=== PATIENT | male | born 1955 | race Caucasian/White ===

== ENCOUNTER 2017-05-28 11:44 | Inpatient (IN) ==
--- NOTE | 2017-05-27 17:02 | Discharge Summary ---
<Valerie Gruber E - Last Filed: 05/27/17 16:59> Date of Encounter: 05/27/17 - Discharge Diagnosis (1) Mechanical loosening of internal right knee prosthetic joint Priority: Primary Status: Chronic Qualifiers: Encounter type: subsequent encounter Qualified Code(s): T84.032D - Mechanical loosening of internal right knee prosthetic joint, subsequent encounter (2) COPD (chronic obstructive pulmonary disease) Priority: Secondary Status: Chronic Qualifiers: COPD type: unspecified COPD Qualified Code(s): J44.9 - Chronic obstructive pulmonary disease, unspecified (3) History of melanoma Priority: Secondary Status: Chronic (4) Chronic pain Priority: Secondary Status: Chronic Qualifiers: Chronic pain type: other chronic pain Qualified Code(s): G89.29 - Other chronic pain (5) Type 2 diabetes mellitus Priority: Secondary Status: Chronic Qualifiers: Diabetes mellitus complication status: with unspecified complications Diabetes mellitus penitentiary insulin use: with penitentiary use Qualified Code(s) : E11.8 - Type 2 diabetes mellitus with unspecified complications; Z79.4 - USP (current) use of insulin; Z79.4 - USP (current) use of insulin; Z79.4 - USP (current) use of insulin; Z79.4 - USP (current) use of insulin (6) Hypertension Priority: Secondary Status: Chronic Qualifiers: Hypertension type: unspecified Qualified Code(s): I10 - Essential (primary ) hypertension (7) 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) Priority: Secondary Status: Chronic - Discharge Medications Home Medications: Albuterol Sulfate [Albuterol Inhaler] 2 puff IH Q4HR #1 inhaler 03/04/15 [Rx] Budesonide/Formoterol 160/4.5 [Symbicort] 2 puff IH BIDR #1 inhaler 03/04/15 [Rx ] Lisinopril [Zestril] 20 mg PO DAILY #30 tablet 03/04/15 [Rx] Baclofen 20 mg PO Q8H 02/15/16 [History] Oxygen 2 l NS DAILY PRN 02/15/16 [History] Albuterol Neb [Proventil Neb] 2.5 mg IH QID PRN 05/30/16 [History] Aspirin 81 mg PO DAILY 08/08/16 [History] Loratadine [Allergy Relief] 10 mg PO DAILY #30 tablet 08/15/16 [Rx] Insulin DETEMIR [Levemir] 22 unit SQ HS 04/27/17 [History] Liraglutide [Victoza 2-Lenard] 1.2 mg SQ DAILY 04/27/17 [History] Hydrocortisone 2.5% CREAM [Cortaid] 1 appl TP BID #1 tube 05/17/17 [Rx] Aspirin Enteric Coated [Aspirin EC] 325 mg PO DAILY 21 Days #21 tablet. [Rx] Oxycodone HCl/Acetaminophen [Percocet 7.5-325 mg Tablet] 1 tab PO Q6H PRN [History] metFORMIN [Glucophage] 1,000 mg PO QPM 05/28/17 [History] metFORMIN [Glucophage] 500 mg PO QAM 05/28/17 [History] Allergies/Adverse Reactions: 3 Allergy/AdvReac Type Severity Reaction Status Date / Time No Known Allergies Allergy Verified 05/28/17 12:12 Primary care physician: Jhoan Tsang DO - Patient Status Disposition: Home Health Service Condition: Good - Discharge Instructions Follow Up With: Jhoan Tsang DO [Primary Care Provider] - - Hospital Course Hospital course: Mr. Tang is a 62 year old male - Time Spent with Patient Total time spent providing and/or coordinating discharge services: <Ilan Serrano - Last Filed: 05/29/17 07:10> Date of Encounter: 05/29/17 Time of Encounter: 07:09 - Discharge Diagnosis (1) Status post revision of total replacement of right knee Priority: Primary Status: Acute (2) Obesity (BMI 30.0-34.9) Priority: Secondary Status: Chronic (3) Mechanical loosening of internal right knee prosthetic joint Priority: Primary Status: Chronic Qualifiers: Encounter type: subsequent encounter Qualified Code(s): T84.032D - Mechanical loosening of internal right knee prosthetic joint, subsequent encounter (4) COPD (chronic obstructive pulmonary disease) Priority: Secondary Status: Chronic Qualifiers: COPD type: unspecified COPD Qualified Code(s): J44.9 - Chronic obstructive pulmonary disease, unspecified (5) History of melanoma Priority: Secondary Status: Chronic (6) Chronic pain Priority: Secondary Status: Chronic Qualifiers: Chronic pain type: other chronic pain Qualified Code(s): G89.29 - Other chronic pain (7) 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) Priority: Secondary Status: Chronic (8) Type 2 diabetes mellitus Priority: Secondary Status: Chronic Qualifiers: Diabetes mellitus complication status: with unspecified complications Diabetes mellitus terminologist insulin use: with terminologist use Qualified Code(s) : E11.8 - Type 2 diabetes mellitus with unspecified complications; Z79.4 - USP (current) use of insulin; Z79.4 - terminal gauger (current) use of insulin; Z79.4 - USP (current) use of insulin; Z79.4 - USP (current) use of insulin (9) Hypertension Priority: Secondary Status: Chronic Qualifiers: Hypertension type: unspecified Qualified Code(s): I10 - Essential (primary ) hypertension (10) 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 Tang is a 62 year old male Status post revision right total knee The patient had an uneventful postoperative course. They received antibiotics and physical therapy and were discharged in stable condition. There will follow -up in the office in 2 weeks. - Time Spent with Patient Total time spent providing and/or coordinating discharge services:
[2017-05-28] MEDS ORDERED: Lidocaine -MPF 1% 2 ML VIAL ID ONE (12:42)
[2017-05-28] MEDS ORDERED: Albuterol 2.5 MG/3 ML NEBULIZER IH ONE ×2 (12:42→17:32)
[2017-05-28] MEDS ORDERED: CeFAZolin Syr 2,000MG/20 ML 2,000 MG/20 ML SYRINGE IVPB ONE (12:42)
--- NOTE | 2017-05-28 12:43 | History & Physical Report ---
Date of Encounter: 05/28/17 Time of Encounter: 12:43 24 Hour HP Update - Instructions Instructions: If the History and Physical is less than 30 days old and was completed prior to A.M. admission and or procedure and has NOT been updated on calendar day of procedure please complete this update prior to performing procedure. - Update Patient reports changes in Medical Condition: No Changes in examination, assessment, or condition: No Changes in Medication: No Preop tests/diagnostics Reviewed: Yes Surgery Remains Indicated: Yes Consent for Planned Operative Procedure(s) Verified: Yes - Pre-Operative Checklist Preoperative Checklist Indicated: No Prophylactic Antibiotic Ordered: Yes Is VTE Prophylaxis Indicated?: Yes
[2017-05-28] MEDS ORDERED: Ringers Solution, Lactated 1,000 ML IVC SCH ×3 (12:45→21:48)
--- NOTE | 2017-05-28 13:23 | Anesthesia Evaluation PreOp ---
Date of Encounter: 05/28/17 Time of Encounter: 13:22 - Past History Planned Operation: Right Total Knee Arthroplasty Cardiac History: HTN Pulmonary History: Former smoker (quit 16 years ago, smoked for 33 years), COPD (home O2 2L prn), ALCIRA Dx (does not use CPAP) WAISTBAND SETTER History: Denies Any Significant HX Other Medical History: Diabetes Type II Anesthesia History: No Prior Anesthetic Complications, Past Anesthesia Alcohol Use: none Drug use: none Medications and Allergies Albuterol Sulfate [Albuterol Inhaler] 2 puff IH Q4HR #1 inhaler 03/04/15 [Rx] Budesonide/Formoterol 160/4.5 [Symbicort] 2 puff IH BIDR #1 inhaler 03/04/15 [Rx ] Lisinopril [Zestril] 20 mg PO DAILY #30 tablet 03/04/15 [Rx] Baclofen 20 mg PO Q8H 02/15/16 [History] Oxygen [Oxygen] 2 l NS DAILY PRN 02/15/16 [History] Albuterol Neb [Proventil Neb] 2.5 mg IH QID PRN 05/30/16 [History] Aspirin 81 mg PO DAILY 08/08/16 [History] Loratadine [Allergy Relief] 10 mg PO DAILY #30 tablet 08/15/16 [Rx] Insulin DETEMIR [Levemir] 22 unit SQ HS 04/27/17 [History] Liraglutide [Victoza 2-Lenard] 1.2 mg SQ DAILY 04/27/17 [History] Hydrocortisone 2.5% CREAM [Cortaid] 1 appl TP BID #1 tube 05/17/17 [Rx] Aspirin Enteric Coated [Aspirin EC] 325 mg PO DAILY 21 Days #21 tablet. [Rx] Oxycodone HCl/Acetaminophen [Percocet 7.5-325 mg Tablet] 1 tab PO Q6H PRN [History] metFORMIN [Glucophage] 1,000 mg PO QPM 05/28/17 [History] metFORMIN [Glucophage] 500 mg PO QAM 05/28/17 [History] 3 Allergy/AdvReac Type Severity Reaction Status Date / Time No Known Allergies Allergy Verified 05/28/17 12:12 - Meds/Allergy Pre-op Review Medications Reviewed: Yes Allergies Reviewed: Yes Beta Blockers on Current Med List: No Anesthesia Results - Labs Laboratory Tests 05/15/17 05/15/17 05/15/17 13:54 13:54 13:54 WBC 10.8 Hgb 16.2 Hct 49.5 Plt Count 243 PT 10.3 INR 1.0 APTT 21.4 L Sodium 137 Potassium 4.6 BUN 19 Creatinine 0.99 - Imaging EKG: report reviewed (04/09/2017 SINUS TACHYCARDIA RIGHT BUNDLE BRANCH BLOCK [ 120+ ms QRS DURATION, UPRIGHT V1, 40+ ms S IN I/aVL/V4/V5/V6] INTERPRETATION BASED ON A DEFAULT AGE OF 40 YEARS) Additional studies: 03/03/2015 Echo sinus tach in 110's throughout exam hyperdynamic LV systolic function, LVEF 75% normal RV structure and function no significant valvular dysfunction Anesthesia Exam O2 Sat Height 1.73 m Height 1.73 m Height 1.73 m Weight 103.419 kg Weight 103.419 kg Weight 103.419 kg O2 Sat by Pulse Oximetry 95 O2 Sat by Pulse Oximetry 95 O2 Sat by Pulse Oximetry 95 Vital Signs Temp Pulse Resp BP Pulse Ox 98.0 F 83 18 118/78 95 05/28/17 12:10 05/28/17 12:10 05/28/17 12:10 05/28/17 12:10 05/28/17 12:10 Blood Glucose* 130 Height: 5'8'' Weight: 228 lbs NPO (# of Hours): 8 - HEENT Pupil (Motor): EOMI Mallampati: II Teeth: Edentulous Denture Type: Upper: Complete, Lower: Complete Oral Opening: Greater than 3 - WAISTBAND SETTER LOC: Oriented WAISTBAND SETTER Motor: Normal RUE, Normal LUE, Normal RLE, Normal LLE, Normal Face WAISTBAND SETTER Sensory: Normal: RUE, LUE, Face, Deficit: RLE (neuropathy toes), LLE ( neuropathy toes) - Cardiac Rhythm: Regular Murmur: None - Pulmonary Breath Sounds: bilateral Clear Respiratory Effort: Symmetrical Anesthesia Assess/Plan ASA Score: 3 Modified Hanahan Scale for Level of Consciousness: Cooperative, oriented, and tranquil Anesthetic Plan: General, Regional Monitoring Plan: Standard Monitors Recovery Plan: PACU
[2017-05-28] MEDS ORDERED: Povidone-Iodine 22.5 ML, Sodium Chloride IRRigation 500 ML IR ONE (14:55)
[2017-05-28] MEDS ORDERED: *HR* Propofol 200 MG/20 ML VIAL IVP ONE (16:37)
[2017-05-28] MEDS ORDERED: *HR* FentaNYL (PF) 100 MCG/2 ML VIAL ONE ×2 (16:37→17:48)
[2017-05-28] MEDS ORDERED: *HR* Midazolam HCl 2 MG/2 ML VIAL ONE (16:37)
[2017-05-28] MEDS ORDERED: Lidocaine -MPF 2% 2 ML VIAL ONE (16:39)
[2017-05-28] MEDS ORDERED: *HR* Magnesium Sulfate 1 GM/2 ML VIAL ONE (16:40)
[2017-05-28] MEDS ORDERED: Bupivacaine/Clonidine Syringe 1 EACH SYRINGE ONE (16:53)
[2017-05-28] MEDS ORDERED: ROPIVACAINE HCL/PF 0.5% 30 ML VIAL ONE (16:53)
[2017-05-28] MEDS ORDERED: Dexamethasone 4 MG/ML VIAL ONE (16:55)
[2017-05-28] MEDS ORDERED: Ethanol\\Acetic Acid\\Na Ace\\Ben 1,000 ML IRRIG.SOLN IR ONE (17:04)
--- NOTE | 2017-05-28 17:15 | Anesthesia Procedures ---
Date of Encounter: 05/28/17 Time of Encounter: 17:13 Procedures: Anesthesia - Nerve Block Procedure Date: 05/28/17 Time: 17:13 Allergies/Adv Reactions: nka Surgical Procedure: right TKA rev Checklist: Correct Patient Identifier, Correct procedure, History checked Correct side: Right Blood Thinner: No Monitor Applied: EKG, BP, Pulse Oximetry Supplemental Oxygen via Nasal Cannula (L/min): 2 Sedation: Versed (mg): 2 Sedation: Fentanyl (mcg): 100 Indication: Post Op Analgesia Pre-op Neuro Deficits: No Block Type: Femoral, Other (ipack) Catheter placed: No Sterile Technique: Yes Ultrasound used: Yes Anatomy identified: Yes Visual spread of Local: Yes Neuro Stimulation: Yes (femoral only) Nerve Stimulator Range: 0.2 - 0.4 mA Blood on Needle Aspiration: No Smooth Injection of Local: Yes Pain with Injection of Local: No Prep: Chlorhexadine Needle: 22 x 50 mm Stimuplex Local: 0.25% Bupivicaine w/Clonidine 20 mcg/cc (20ml), Ropivacaine (0.5% 30ml + 8mg decadron) Volume (cc): 50 Number of Attempts: 1 Complications: None/effective block Vitals: Vital Signs/O2 Sat/Glucose, Most Recent Temp Pulse Resp BP Pulse Ox 98.0 F 89 16 117/78 97 05/28/17 12:45 05/28/17 17:03 05/28/17 17:03 05/28/17 17:03 05/28/17 17:03 Blood Glucose* 130
[2017-05-28] MEDS ORDERED: Naloxone 0.4 MG/ML INJ IVP PRN ×2 (17:32→21:48)
[2017-05-28] MEDS ORDERED: Ondansetron 4 MG/2 ML VIAL IVP ONE (17:32)
[2017-05-28] MEDS ORDERED: *HR* Enoxaparin 30 MG/0.3 ML SYRINGE SQ SCH (18:00)
--- NOTE | 2017-05-28 18:18 | Orthopedic Operative Note ---
Date of procedure: 05/28/17 Pre-op diagnosis: Aseptic loosening right total knee Post-op diagnosis: same Procedure: Procedure: Right revision total knee Estimated blood loss: 200 Hardware: Metal and polyethylene replacement. Biomet SSK femur: 70, 16 x 80 stem Tibia: 71, 16 x 80 stem Constrained Ade: 10 Exam Under anesthesia: Flexion contracture 15 degrees full flexion, well-healed incision, no swelling or erythema, no instability Procedural Notes: Loosening of femoral and tibial components. Operative procedure: The patient was brought to the operating room and placed on the operating room table. After general anesthesia was administered the operative knee was examined. Findings were noted in the exam under anesthesia. The operative extremity was prepped and draped in sterile surgical fashion. The patient received IV antibiotics prior to skin incision. A standard midline incision was made centered over the patella through the old incision. The incision was made through the skin and subcutaneous tissue. A medial parapatellar tendon approach was performed. Care was taken to preserve tissue along the medial aspect of the patella. And to protect the patella tendon. The deep MCL was released off the medial tibia. The infra patella fat pad was excised. Fluid was encountered this was normal joint fluid, Cultures were obtained and gram . The knee was brought into flexion the poly-was removed. The interface between the patient's femoral component and distal femur were disrupted with a osteotome and oscillating saw. Femoral component was loose and removed without significant bone loss. Attention was then turned to the tibial component. The same technique was used to remove the tibial component by disrupting the interface between the patient's tibial component and the patients proximal tibia. The tibial component was loose, was removed without significant bone loss. The tibia was sized to a 71 it was reamed up to a 16 x 80 Trial had good fit and fixation. The femur was sized to a 70, was reamed up to a 16 x 80 The finishing guide was seated and the box cut was made. The trial had good fit and fixation. Both trial components were seated and the 10 constrained Ade was seated and secured. The knee had full flexion and full extension with no instability. Patella had excellent patella tracking. The trial components were removed. The knee sat for 2 minutes with a Betadine saline solution. It was irrigated out with 2 L of pulse irrigation. The components were assembled on the back table, the tibia cemented first followed by the femur. The 10 constrained liner was seated and secure. The knee was brought to full extension while the cement hardened. The patella was cemented and held in place with patellar holding clamp. After the cement hardened the knee was irrigated out again. The knee was closed by the PA. The extensor mechanism was closed with a running #2 Fiberwire suture and a running #2 PDS suture. The deep tissue was irrigated and closed deep with #1 PDS suture superficially with 0 PDS suture. The skin was closed with skin abigail. The patient was placed in a sterile dressing and postoperative brace. They were extubated and transferred to recovery room in stable condition. Anesthesia: GETA Surgeon: Ilan Serrano Was there an title i instructional assistant present: No Estimated blood loss (cc): 200 Condition: stable Disposition: PACU
[2017-05-28] MEDS: *HR* HYDROmorphone (PF) 1 MG/ML SYRINGE IVP PRN ×4 (18:55→19:17)
--- NOTE | 2017-05-28 19:26 | Anesthesia Evaluation Post Op ---
Date of Encounter: 05/28/17 Time of Encounter: 19:25 - Vital Signs Vital Signs: Last Vital Signs Temp 98 F 05/28/17 19:24 Pulse 87 05/28/17 19:24 Resp 14 05/28/17 19:24 BP 128/82 05/28/17 19:24 Pulse Ox 94 05/28/17 19:24 - Lungs Lungs: Clear Ascult./Percussion - Airway Airway: Non-obstructed - Cardiovascular Regular Rate - Mental Status Mental Status: Alert & Oriented, Answers Appropriately - Pain Pain Scale: 4 - Nausea Vomiting Nausea Vomiting: Not Present - Hydration Hydration: Ice chips - Discharge PostOp Status: Transfer Patient to floor
[2017-05-28] MEDS ORDERED: *HR* OxyCODONE Immed Rel 5 MG TABLET PO PRN (21:48)
[2017-05-28] MEDS ORDERED: NON-FORMULARY MEDICATION 1 EACH EACH (Oxygen [Oxygen] 2 L) NS PRN (21:48)
[2017-05-28] MEDS ORDERED: Albuterol 2.5 MG/3 ML NEBULIZER IH PRN (21:48)
[2017-05-28] MEDS ORDERED: Sennosides 8.6 MG TABLET PO PRN (21:48)
[2017-05-28] MEDS ORDERED: MOM Conc 10 ML UD.LIQ PO PRN (21:48)
[2017-05-28] MEDS ORDERED: Temazepam 15 MG CAPSULE PO PRN (21:48)
[2017-05-28] MEDS ORDERED: D5% in Water 1,000 ML IVC PRN (21:48)
[2017-05-28] MEDS ORDERED: Ondansetron 4 MG/2 ML VIAL IVP PRN (21:48)
[2017-05-28] MEDS ORDERED: *HR* Dextrose 50 % in Water (Syg) 50 ML SYRINGE IVP PRN (21:48)
[2017-05-28] MEDS ORDERED: Dextrose Gel 15 GM/37.5 ML TUBE PO PRN ×2 (21:48)
[2017-05-28] MEDS: Budesonide/Formoterol 160/4.5 MDI IH SCH (23:33)
[2017-05-29] MEDS: CeFAZolin Premix DUPLEX 2,000 MG/50 ML BAG IVPB SCH ×2 (00:01→08:19)
[2017-05-29] MEDS: Insulin LISPRO 300 UNITS/3 ML VIAL SQ SCH ×5 (00:01→21:41)
[2017-05-29] MEDS: *HR* OxyCODONE Immed Rel 15 MG TABLET PO PRN ×3 (00:03→14:11)
[2017-05-29] MEDS: *HR* Metformin 500 MG TABLET PO SCH ×3 (00:04→16:53)
[2017-05-29] MEDS: Baclofen 10 MG TABLET PO SCH ×4 (00:51→22:19)
[2017-05-29] MEDS: Insulin DETEMIR 100 UNIT/ML X5UNITS SQ SCH ×2 (00:52→21:40)
[2017-05-29 01:12] LABS: Hematocrit 44.7 % (37.5-50.1); Hemoglobin 14.6 g/dL (12.9-16.9)
[2017-05-29] MEDS: *HR* Enoxaparin 30 MG/0.3 ML SYRINGE SQ SCH ×2 (05:21→16:53)
[2017-05-29 06:30] LABS: Hematocrit 43.3 % (37.5-50.1); Hemoglobin 14.1 g/dL (12.9-16.9)
[2017-05-29 06:32] LABS: BUN/Creatinine Ratio 21 (6-26); Blood Urea Nitrogen 21 mg/dL (8-23); Calcium 8.6 mg/dL (8.6-10.3); Carbon Dioxide 19 mEq/L (23-29); Chloride 103 mEq/L (98-107); Glucose 289 mg/dL (70-105); Osmolality,Calculated 288 (280-300); Potassium 4.7 mEq/L (3.5-5.1); Sodium 132 mEq/L (136-145); eGFR For African Americans > 60 (> 60); eGFR For Non-African Americans > 60 (> 60)
--- NOTE | 2017-05-29 07:10 | Orthopedics Progress Note ---
Date of Encounter: 05/29/17 Time of Encounter: 07:10 - Assessment and Plan (1) Status post revision of total replacement of right knee Current Visit: Yes Status: Acute (2) Obesity (BMI 30.0-34.9) Current Visit: Yes Status: Chronic (3) Mechanical loosening of internal right knee prosthetic joint Current Visit: No Status: Chronic Qualifiers: Encounter type: subsequent encounter Qualified Code(s): T84.032D - Mechanical loosening of internal right knee prosthetic joint, subsequent encounter (4) COPD (chronic obstructive pulmonary disease) Current Visit: No Status: Chronic Qualifiers: COPD type: unspecified COPD Qualified Code(s): J44.9 - Chronic obstructive pulmonary disease, unspecified (5) History of melanoma Current Visit: No Status: Chronic (6) Chronic pain Current Visit: No Status: Chronic Qualifiers: Chronic pain type: other chronic pain Qualified Code(s): G89.29 - Other chronic pain (7) 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) Current Visit: No Status: Chronic (8) Type 2 diabetes mellitus Current Visit: No Status: Chronic Qualifiers: Diabetes mellitus complication status: with unspecified complications Diabetes mellitus nursing home insulin use: with multifocal lens assembler use Qualified Code(s) : E11.8 - Type 2 diabetes mellitus with unspecified complications; Z79.4 - quality manager (current) use of insulin; Z79.4 - quality manager (current) use of insulin; Z79.4 - assisted (current) use of insulin; Z79.4 - quality manager (current) use of insulin (9) Hypertension Current Visit: No Status: Chronic Qualifiers: Hypertension type: unspecified Qualified Code(s): I10 - Essential (primary ) hypertension (10) 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 Afebrile vital signs stable. Operative extremity: Neurovascularly intact Dressing clean dry and intact Calves nontender Assessment and plan: Continue with postoperative care Hematocrit 44 discharged today Objective Vital signs: Vital Signs Temp Pulse Resp BP Pulse Ox 05/29/17 07:03 98.8 F 110 18 113/70 94 05/29/17 03:56 18 97 05/29/17 03:51 98.4 F 103 17 108/78 97 05/28/17 23:56 98.2 F 100 17 130/71 96 05/28/17 23:33 16 96 05/28/17 21:48 97.8 F 107 16 132/71 96 05/28/17 20:05 97.7 F 97 16 125/74 97 05/28/17 19:51 98.3 F 91 17 125/74 96 05/28/17 19:35 98.4 F 101 17 123/74 97 05/28/17 19:34 98.2 F 86 14 130/78 94 05/28/17 19:24 98 F 87 14 128/82 94 05/28/17 19:14 89 14 115/65 95 05/28/17 19:04 91 14 125/66 95 05/28/17 18:54 97.7 F 92 16 129/78 94 05/28/17 17:15 95 14 125/79 94 05/28/17 17:03 89 16 117/78 97 05/28/17 12:45 98.0 F 83 18 118/78 95 05/28/17 12:10 98.0 F 83 18 118/78 95 Intake and Output 05/28/17 05/28/17 05/29/17 15:59 23:59 07:59 Intake Total 350 / 350 Output Total 200 / 200 250 / 250 Balance 150 / 150 -250 / -250 Intake: Oral 350 / 350 Output: Urine 250 / 250 Estimated Blood Loss 200 / 200 Other: Meal tv dinner Percent of Meal Consumed 100% Weight 103.419 kg Blood Glucose* 130 239 - Labs CBC & BMP: 05/29/17 05:35 05/29/17 05:35 Labs: Abnormal lab results Sodium 132 mEq/L (136-145) L 05/29/17 05:35 Carbon Dioxide 19 mEq/L (23-29) L 05/29/17 05:35 Glucose 289 mg/dL (70-105) H 05/29/17 05:35 POC Glucose 239 (58-89) H 05/28/17 23:52 - VTE Documentation of Mechanical Device: Venous foot pump, device Consult Discharge Plan - Plan Referrals: Jhoan Tsang DO [Primary Care Provider] -
[2017-05-29] MEDS: Budesonide/Formoterol 160/4.5 MDI IH SCH ×2 (08:07→20:13)
[2017-05-29] MEDS: Loratadine 10 MG TABLET PO SCH (08:18)
[2017-05-29] MEDS: Lisinopril 20 MG TABLET PO SCH (08:18)
[2017-05-29] MEDS: Aspirin 81 MG TAB.CHEW PO SCH (08:18)
[2017-05-29] MEDS: (Liraglutide [Victoza 2-Pak] 1.2 MG) SQ SCH (08:19)
--- NOTE | 2017-05-29 17:10 | Event Note ---
Date of Encounter: 05/29/17 Time of Encounter: 12:00 PCR- POD#1 R TKR revision Serrano 05/28/17 PCR - Patient seen at bedside. Pain control: Adequate Participating in PT. All questions and concerns addressed. Educated on use of incentive spirometer, ambulation, and hydration. Patient educated on post-operative restrictions and care. Addressed: Patient now needing ECF care per PT recommendations. D/C plan: D/C ECF when approved/auth obtained - discussed with Neli - states that he requires 3 night stay - discussed [facility] as patient's placement of choice. Continuity placed.
--- NOTE | 2017-05-29 17:11 | Physician Discharge Referral ---
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) Priority: Secondary Status: Chronic (8) Status post revision of total replacement of right knee Priority: Primary Status: Acute Expected Duration of Placement: less than 30 days Prognosis: Good Aware of Diagnosis: Patient Aware of Prognosis: Patient - Transfer Medications Home Medications: Albuterol Sulfate [Albuterol Inhaler] 2 puff IH Q4HR #1 inhaler 03/04/15 [Rx] Budesonide/Formoterol 160/4.5 [Symbicort] 2 puff IH BIDR #1 inhaler 03/04/15 [Rx ] Lisinopril [Zestril] 20 mg PO DAILY #30 tablet 03/04/15 [Rx] Baclofen 20 mg PO Q8H 02/15/16 [History] Oxygen 2 l NS DAILY PRN 02/15/16 [History] Albuterol Neb [Proventil Neb] 2.5 mg IH QID PRN 05/30/16 [History] Aspirin 81 mg PO DAILY 08/08/16 [History] Loratadine [Allergy Relief] 10 mg PO DAILY #30 tablet 08/15/16 [Rx] Insulin DETEMIR [Levemir] 22 unit SQ HS 04/27/17 [History] Liraglutide [Victoza 2-Lenard] 1.2 mg SQ DAILY 04/27/17 [History] Hydrocortisone 2.5% CREAM [Cortaid] 1 appl TP BID #1 tube 05/17/17 [Rx] Aspirin Enteric Coated [Aspirin EC] 325 mg PO DAILY 21 Days #21 tablet. [Rx] Oxycodone HCl/Acetaminophen [Percocet 7.5-325 mg Tablet] 1 tab PO Q6H PRN [History] metFORMIN [Glucophage] 1,000 mg PO QPM 05/28/17 [History] metFORMIN [Glucophage] 500 mg PO QAM 05/28/17 [History] Allergies/Adverse Reactions: 3 Allergy/AdvReac Type Severity Reaction Status Date / Time No Known Allergies Allergy Verified 05/28/17 12:12 - Respiratory Orders Smoking Cessation: Smoking cessation has been advised. For more information, call the [place] Tobacco Quit Line at 6-219-BUYI-NOW. - Ancillary Orders May use pressure relief devices daily prn, May go on ELLA w/family/respon democrat w /meds at nurse discretion PRN, May consult with Dentist, Otc Clerk, Gift Consultant PRN - Mobility Orders Chair, Ambulate - Rehabiliation Orders Rehab Potential: Good Rehab Orders: Evaluation for Physical Therapy Other: Total Knee replacement Precautions x 6 weeks Apply cold therapy wrap 3-6x/day for 20 minutes at a time. Encourage ambulation throughout the day and incentive spirometer 10x/hour. Elevate affected extremity above heart as tolerated. Brace: Wear knee immobilizer at night x 2 weeks. - Treatments Skin tear care topically daily PRN per policy List/Other: Opsite placed. Keep dressing intact until first follow up appointment. If > 50% saturated, notify office, remove dressing and place appropriate dressing back in place. Leave Geovanni and Zipline intact. Opsite dressing is water resistant, not water-proof. OK to shower, but do not get dressing wet. - Diet Orders Regular CERTIFICATION: I certify that the transfer of the above named patient to an Extended Care Facility is necessary for the continuing treatment of the diagnosis listed. The above information is true and accurate reflection of patient's current condition. Confidential - Redisclosure prohibited without a patient's written consent.
[2017-05-30] MEDS: *HR* OxyCODONE Immed Rel 15 MG TABLET PO PRN ×2 (05:38→09:53)
[2017-05-30] MEDS: Baclofen 10 MG TABLET PO SCH ×3 (05:38→20:56)
[2017-05-30] MEDS: *HR* Enoxaparin 30 MG/0.3 ML SYRINGE SQ SCH ×2 (05:39→16:54)
[2017-05-30 06:49] LABS: Hematocrit 38.6 % (37.5-50.1)
[2017-05-30 06:50] LABS: Hemoglobin 12.4 g/dL (12.9-16.9)
[2017-05-30 07:08] LABS: BUN/Creatinine Ratio 30 (6-26); Blood Urea Nitrogen 25 mg/dL (8-23); Calcium 8.4 mg/dL (8.6-10.3); Carbon Dioxide 26 mEq/L (23-29); Chloride 106 mEq/L (98-107); Glucose 183 mg/dL (70-105); Osmolality,Calculated 289 (280-300); Potassium 4.5 mEq/L (3.5-5.1); Sodium 135 mEq/L (136-145); eGFR For African Americans > 60 (> 60); eGFR For Non-African Americans > 60 (> 60)
[2017-05-30] MEDS: Budesonide/Formoterol 160/4.5 MDI IH SCH ×2 (08:19→19:45)
--- NOTE | 2017-05-30 08:49 | Orthopedics Progress Note ---
Date of Encounter: 05/30/17 Time of Encounter: 08:48 - Assessment and Plan (1) Status post revision of total replacement of right knee Current Visit: Yes Status: Acute (2) Obesity (BMI 30.0-34.9) Current Visit: Yes Status: Chronic (3) Mechanical loosening of internal right knee prosthetic joint Current Visit: No Status: Chronic Qualifiers: Encounter type: subsequent encounter Qualified Code(s): T84.032D - Mechanical loosening of internal right knee prosthetic joint, subsequent encounter (4) COPD (chronic obstructive pulmonary disease) Current Visit: No Status: Chronic Qualifiers: COPD type: unspecified COPD Qualified Code(s): J44.9 - Chronic obstructive pulmonary disease, unspecified (5) History of melanoma Current Visit: No Status: Chronic (6) Chronic pain Current Visit: No Status: Chronic Qualifiers: Chronic pain type: other chronic pain Qualified Code(s): G89.29 - Other chronic pain (7) 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) Current Visit: No Status: Chronic (8) Type 2 diabetes mellitus Current Visit: No Status: Chronic Qualifiers: Diabetes mellitus complication status: with unspecified complications Diabetes mellitus prison insulin use: with nail specialist use Qualified Code(s) : E11.8 - Type 2 diabetes mellitus with unspecified complications; Z79.4 - home health aid (current) use of insulin; Z79.4 - home health aid (current) use of insulin; Z79.4 - half-way (current) use of insulin; Z79.4 - home health aid (current) use of insulin (9) Hypertension Current Visit: No Status: Chronic Qualifiers: Hypertension type: unspecified Qualified Code(s): I10 - Essential (primary ) hypertension (10) 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 Afebrile vital signs stable. Operative extremity: Neurovascularly intact Dressing clean dry and intact Calves nontender Assessment and plan: Continue with postoperative care discharge tomorrow Objective Vital signs: Vital Signs Temp Pulse Resp BP Pulse Ox 05/30/17 08:20 16 97 05/30/17 06:57 98.6 F 86 18 123/72 95 05/30/17 04:11 16 98 05/30/17 00:56 98.0 F 84 14 92/85 96 05/29/17 23:38 18 97 05/29/17 20:13 19 98 05/29/17 19:19 98.2 F 109 18 99/60 96 05/29/17 18:36 107 95/57 05/29/17 16:33 18 95 05/29/17 14:57 98.2 F 106 18 95/55 95 05/29/17 11:49 97.8 F 120 18 110/68 97 Intake and Output 05/29/17 05/30/17 05/30/17 23:59 07:59 15:59 Intake Total 150 / 150 500 / 500 360 / 360 Output Total 400 / 400 Balance 150 / 150 100 / 100 360 / 360 Intake: Oral 150 / 150 500 / 500 360 / 360 Output: Urine 400 / 400 Other: Meal Breakfast Percent of Meal Consumed 100% Blood Glucose* 201 151 - Labs CBC & BMP: 05/30/17 06:40 05/30/17 06:40 Labs: Abnormal lab results Hgb 12.4 g/dL (12.9-16.9) L D 05/30/17 06:40 Sodium 135 mEq/L (136-145) L 05/30/17 06:40 BUN 25 mg/dL (8-23) H 05/30/17 06:40 BUN/Creatinine Ratio 30 (6-26) H 05/30/17 06:40 Glucose 183 mg/dL (70-105) H 05/30/17 06:40 POC Glucose 201 (58-89) H 05/29/17 21:09 Calcium 8.4 mg/dL (8.6-10.3) L 05/30/17 06:40 - VTE Documentation of Mechanical Device: Venous foot pump, device Consult Discharge Plan - Plan Referrals: Jhoan Tsang DO [Primary Care Provider] -
[2017-05-30] MEDS: Insulin LISPRO 300 UNITS/3 ML VIAL SQ SCH ×4 (08:53→20:57)
[2017-05-30] MEDS: Aspirin 81 MG TAB.CHEW PO SCH (08:54)
[2017-05-30] MEDS: Lisinopril 20 MG TABLET PO SCH (08:54)
[2017-05-30] MEDS: *HR* Metformin 500 MG TABLET PO SCH ×2 (08:55→16:55)
[2017-05-30] MEDS: (Liraglutide [Victoza 2-Pak] 1.2 MG) SQ SCH (08:55)
[2017-05-30] MEDS: Loratadine 10 MG TABLET PO SCH (08:55)
[2017-05-30] MEDS: *HR* OxyCODONE Immed Rel 5 MG TABLET PO PRN ×3 (13:57→22:46)
--- NOTE | 2017-05-30 16:35 | Event Note ---
Date of Encounter: 05/30/17 Time of Encounter: 12:40 PCR- POD#2 R TKR revision Serrano 05/28/17 PCR - Patient seen at bedside. Pain control: Adequate Participating in PT. All questions and concerns addressed. Educated on use of incentive spirometer, ambulation, and hydration. Patient educated on post-operative restrictions and care. Addressed: Patient now needing ECF care per PT recommendations. D/C plan: D/C ECF [facility] tomorrow
[2017-05-30] MEDS: Insulin DETEMIR 100 UNIT/ML X5UNITS SQ SCH (20:57)
[2017-05-31] MEDS: *HR* OxyCODONE Immed Rel 5 MG TABLET PO PRN (05:13)
[2017-05-31] MEDS: *HR* Enoxaparin 30 MG/0.3 ML SYRINGE SQ SCH (05:13)
[2017-05-31] MEDS: Baclofen 10 MG TABLET PO SCH (05:14)
[2017-05-31] MEDS: Budesonide/Formoterol 160/4.5 MDI IH SCH (08:17)
[2017-05-31] MEDS: Aspirin 81 MG TAB.CHEW PO SCH (08:29)
[2017-05-31] MEDS: Loratadine 10 MG TABLET PO SCH (08:29)
[2017-05-31] MEDS: Insulin LISPRO 300 UNITS/3 ML VIAL SQ SCH ×2 (08:29→12:03)
[2017-05-31] MEDS: *HR* Metformin 500 MG TABLET PO SCH (08:29)
[2017-05-31] MEDS: Lisinopril 20 MG TABLET PO SCH (08:29)
[2017-05-31] MEDS: (Liraglutide [Victoza 2-Pak] 1.2 MG) SQ SCH (08:30)
--- NOTE | 2017-05-31 10:01 | Orthopedics Progress Note ---
Date of Encounter: 05/31/17 Time of Encounter: 08:00 - Assessment and Plan (1) Mechanical loosening of internal right knee prosthetic joint Current Visit: Yes Status: Chronic Qualifiers: Encounter type: subsequent encounter Qualified Code(s): T84.032D - Mechanical loosening of internal right knee prosthetic joint, subsequent encounter (2) COPD (chronic obstructive pulmonary disease) Current Visit: No Status: Chronic Qualifiers: COPD type: unspecified COPD Qualified Code(s): J44.9 - Chronic obstructive pulmonary disease, unspecified (3) History of melanoma Current Visit: No Status: Chronic (4) Chronic pain Current Visit: No Status: Chronic Qualifiers: Chronic pain type: other chronic pain Qualified Code(s): G89.29 - Other chronic pain (5) Type 2 diabetes mellitus Current Visit: No Status: Chronic Qualifiers: Diabetes mellitus complication status: with unspecified complications Diabetes mellitus belt picker insulin use: with snf use Qualified Code(s) : E11.8 - Type 2 diabetes mellitus with unspecified complications; Z79.4 - skilled nursing (current) use of insulin; Z79.4 - [place] (current) use of insulin; Z79.4 - skilled nursing (current) use of insulin; Z79.4 - [place] (current) use of insulin (6) Hypertension Current Visit: No Status: Chronic Qualifiers: Hypertension type: unspecified Qualified Code(s): I10 - Essential (primary ) hypertension (7) 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 Objective: Afebrile vital signs stable. Operative extremity: Neurovascularly intact Dressing clean dry and intact Calves nontender Assessment: POD#3 s/p R TKR revision Serrano 05/28/17 Plan: Continue with postoperative care Discharge today - patient has auth to go to [facility], [facility] and also has treatment at cancer center today. Patient to keep outpatient follow up as scheduled. Objective Vital signs: Vital Signs Temp Pulse Resp BP Pulse Ox 05/31/17 08:40 93 05/31/17 08:18 18 93 05/31/17 07:05 98.6 F 106 18 116/76 93 05/31/17 04:38 18 92 01/18/18 03:32 98.7 F 98 18 118/75 93 05/31/17 00:48 98.8 F 109 18 125/66 93 05/30/17 19:45 18 99 05/30/17 19:09 98.9 F 93 16 126/68 95 05/30/17 16:12 16 95 05/30/17 15:46 98.7 F 102 18 115/63 95 05/30/17 12:07 20 95 05/30/17 10:45 98.2 F 100 18 123/68 96 Intake and Output 05/30/17 05/31/17 05/31/17 23:59 07:59 15:59 Intake Total 640 / 640 600 / 600 240 / 240 Output Total 960 / 960 650 / 650 Balance -320 / -320 -50 / -50 240 / 240 Intake: Oral 640 / 640 600 / 600 240 / 240 Output: Urine 960 / 960 650 / 650 Other: Meal Dinner Breakfast Percent of Meal Consumed 100% 75% Blood Glucose* 130 214 - Labs CBC & BMP: 05/30/17 06:40 05/30/17 06:40 Labs: Abnormal lab results Hgb 12.4 g/dL (12.9-16.9) L D 05/30/17 06:40 Sodium 135 mEq/L (136-145) L 05/30/17 06:40 BUN 25 mg/dL (8-23) H 05/30/17 06:40 BUN/Creatinine Ratio 30 (6-26) H 05/30/17 06:40 Glucose 183 mg/dL (70-105) H 05/30/17 06:40 POC Glucose 214 (58-89) H 05/31/17 07:09 Calcium 8.4 mg/dL (8.6-10.3) L 05/30/17 06:40 - VTE Documentation of Mechanical Device: Venous foot pump, device Consult Discharge Plan - Plan Referrals: Jhoan Tsang DO [Primary Care Provider] -
[2017-05-31 11:26] VITALS: BP 143/77
== END 2017-05-31 12:56 | disposition home health service (06) | DRG 468 ==
LOC: SAMDAY 11:44 → 3NENU 19:46
PROVIDERS: ADMIT Orthopaedic Surgery; ATTEND Orthopaedic Surgery